=== PATIENT | female | born 1995 | race Caucasian/White ===

== ENCOUNTER 2024-05-09 08:15 | Emergency (ER) | payer MEDICAID ==
[~2024-05-09] VITALS: Ht 170.1 cm; Wt 70.3 kg
[2024-05-09] MEDS ORDERED: Albuterol Sulfate 0.63 MG/3 ML VIAL NEB ONE (08:35)
[2024-05-09] MEDS ORDERED: predniSONE 20 MG TAB PO ONE (08:35)
[2024-05-09] MEDS ORDERED: Albuterol Sulfate 2.5 MG/3 ML VIAL NEB ONE (08:40)
[2024-05-09] MEDS ORDERED: Albuterol Sulfate 2.5 MG/3 ML VIAL NEB SCH (09:15)
[2024-05-09] MEDS ORDERED: VENT7GM INH (10:36)
[2024-05-09] MEDS ORDERED: PREDNISONE20 M1 PO (10:40)
== END 2024-05-09 10:55 | disposition home or self-care (01) ==
LOC: ED 08:15
DX: J45.21 Mild intermittent asthma with (acute) exacerbation (principal); Z20.822 Contact with and (suspected) exposure to COVID-19; F41.9 Anxiety disorder, unspecified; Z88.0 Allergy status to penicillin